=== PATIENT | female | born 1975 | race Caucasian/White ===

== ENCOUNTER 2019-06-11 11:40 | Emergency (ER) | payer MEDICAID, SELFPAY ==
[2019-06-11 11:41] VITALS: BP 152/91; PULSE 92; RESP 16; TEMP 36.4; O2SAT 100; BMI 30.9
--- NOTE | 2019-06-11 11:52 | RAD_ITS ---
STUDY: X-RAY - LEFT FOOT CLINICAL: Female, 43 years old. Pain and swelling following injury. TECHNIQUE: 3 view(s) of the foot. COMPARISON: None. FINDINGS: There is a plantar calcaneal spur. Normal visualized subtalar, talonavicular, calcaneocuboid, tarsal and tarsometatarsal articulations. Normal metatarsi. Normal metatarsophalangeal joint of the great toe. Normal tibial and fibular sesamoid bones. Normal interphalangeal joint of the great toe. Normal phalanges of the great toe. Normal second through fifth metatarsophalangeal joints. Normal interphalangeal joints and phalanges of the lesser toes. The soft tissue structures are unremarkable. RAD/Foot min 3 Views IMPRESSION: Lateral spur. Electronically Signed: Vinicio Sharpe, at 12:43 EDT , Service support ,
--- NOTE | 2019-06-11 11:52 | RAD_ITS ---
STUDY: X-RAY - LEFT ANKLE REASON FOR EXAM: Female, 43 years old. Pain and swelling following injury. TECHNIQUE: 3 view(s) of the ankle. COMPARISON: None. FINDINGS: Normal visualized distal tibia and fibula. Normal medial and lateral malleoli. Normal tibiotalar articulation and ankle mortise. Plantar spur. The visualized subtalar, talonavicular, calcaneocuboid and tarsal articulations are normal. Soft tissue swelling overlying the lateral malleolus. RAD/Ankle min 3 Views IMPRESSION: Soft tissue swelling. Plantar spur. Electronically Signed: Vinicio Sharpe, at 12:42 EDT , Service support ,
--- NOTE | 2019-06-11 11:57 | ED.DCSUM_ITS ---
History of Present Illness Chief Complaint: Lower Extremity Injury Detail of Chief Complaint: Left ankle injury Informant: Patient Onset: Days Narrative: Patient presents with left ankle injury. She states she is actually rolled her left ankle 3 times in the last 2-1/2 weeks. Yesterday's injury seem to be the worst and cause the most swelling and pain. Past Medical History - Allergies and Home Meds Allergies/Adverse Reactions: Allergies No Known Allergies Allergy (Verified 06/11/19 11:41) Primary Care Physician: [facility] Doctor,Out of [NON-STAFF] - Prior records reviewed: Yes Past Medical History: - - Reviewed Lives: With Family Smoking Status: Never smoker Review of Systems General: Denies: Chills, Fever Eyes: Denies: Visual changes - bilaterally ENT: Denies: Bilateral ear pain Cardiovascular: Denies: Chest pain Respiratory: Denies: Dyspnea, Cough Gastrointestinal: Denies: Abdominal pain, Nausea, Vomiting, Diarrhea Genitourinary: Denies: Dysuria Musculoskeletal: Reports: Extremity Pain Skin: Denies: Rash, Wounds Hematologic: Denies: Easy bruising Physical Exam Vital Signs/Narrative: Vital Signs Temp Pulse Resp BP Pulse Ox 06/11/19 11:41 97.6 F L 92 16 152/91 H 100 Inital Vital Signs reviewed: Yes General: Well nourished, Well developed Head: Normocephalic ENT: Moist mucous membranes Neck: Supple Cardiovascular: Regular rate, Regular rhythm Respiratory: No distress, CTA bilaterally Abdomen: Soft, Nontender Extremities: - - Edema, tenderness to palpation, early ecchymosis around the lateral malleolus of the left ankle. Mild pain noted to the proximal dorsal foot. No tenderness at the proximal fifth metatarsal. No tenderness at the proximal fibula. Strong pulses are noted with good range of motion. Neurological: Alert, Oriented x3 Psychological: Normal affect Diagnostic/Tx/Re-eval Impressions Ankle X-Ray 06/11/19 11:52 IMPRESSION: Soft tissue swelling. Plantar spur. Electronically Signed: Vinicio Sharpe, at 12:42 EDT , Service support , Foot X-Ray 06/11/19 11:52 IMPRESSION: Lateral spur. Electronically Signed: Vinicio Sharpe, at 12:43 EDT , Service support , 06/11/19 11:52 Ankle min 3 Views [RAD] Stat Foot min 3 Views [RAD] Stat - Medical Decision Making Patient was given naproxen and ice pack. X-ray results are discussed with her. She will be given an air stirrup splint and crutches, she may weight-bear as tolerated. She will begin a prescription for naproxen. If not improving she will follow-up with her orthopedic doctor in [place]. ED Disposition - Plan for ED Patient: Disposition: Home or Assisted Living Diagnosis: Ankle sprain Instructions: Sprain, Ankle, with X-Ray Prescriptions: Naproxen [Naprosyn] 500 mg PO BID PRN PRN #20 tablet PRN Reason: Pain Score 1-10/10 Referrals: [facility] Doctor,Out of [NON-STAFF] - Additional Instructions: Follow-up with your orthopedic doctor if not improved in next 5-7 days.
[2019-06-11] MEDS: Naproxen 500 MG Tablet PO (12:04)
== END 2019-06-11 13:27 | disposition home or self-care (01) ==
PROVIDERS: Emergency Provider Emergency Medicine
DX: S93.402A Sprain of unspecified ligament of left ankle, initial encounter (principal); X50.1XXA Overexertion from prolonged static or awkward postures, initial encounter; Y93.9 Activity, unspecified; Y92.89 Other specified places as the place of occurrence of the external cause; Y99.9 Unspecified external cause status
CPT/HCPCS: 73610; 73630; 99284

== ENCOUNTER 2019-07-16 17:00 | Emergency (ER) | payer MEDICAID, SELFPAY ==
[2019-07-16 17:01] VITALS: BP 129/79; PULSE 97; RESP 15; TEMP 36.9; O2SAT 99; BMI 28.9
--- NOTE | 2019-07-16 17:36 | EKG12_ITS ---
Test Reason : CP Blood Pressure : / mmHG Vent. Rate : 084 BPM Atrial Rate : 084 BPM P-R Int : 146 ms QRS Dur : 078 ms QT Int : 370 ms P-R-T Axes : 045 030 041 degrees QTc Int : 437 ms Normal sinus rhythm Normal ECG Confirmed by MARY SARAVIA, BESSY ([id number]), rewrite editor DWIGHT GONZALES ([id number]) on 07/18/2019 10:08:19 AM Referred By: MARGARITA/JAZMIN Confirmed By:MARILYN HERNANDEZ MD
--- NOTE | 2019-07-16 17:50 | ED.VISSUMM ---
- ER Visit Summary Date of Service: 07/16/19 Chief Complaint: Dizziness History of Present Illness: The patient is a 44 F who presents with dizziness and multiple other symptoms. The patient was in a stressful situation and dealing with a family member. She was not injured. She reports shortness of breath similar to her prior asthma symptoms. She reports nausea and vomiting similar to her prior anxiety symptoms. She also reports a history of low platelets. Her symptoms have gradually improved since the incident earlier today. Physical Examination: Afebrile and vital signs unremarkable. Alert and oriented. Anxious but otherwise unremarkable. Head and neck atraumatic. Heart regular. Lungs clear. Abdomen soft. No focal or lateralizing neurologic abnormalities grossly. Skin appears normal. Test Results: EKG showed sinus rhythm at a rate of 84 with no signs of ischemia or infarction pattern. CBC pending. Emergency Department Course and Treatment: Patient presents with panic and likely a stress reaction. Her lungs are clear. I do not suspect an asthma exacerbation or other pulmonary pathology. EKG is normal. Nothing to suggest cardiac pathology. Patient has no focal neurologic symptoms. 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 Will check a CBC. She was treated with Ativan while awaiting results. Will reassess. CBC unremarkable. Hemoglobin 11.7. Patient symptoms have resolved on reevaluation. She will be discharged home. Treatment Plan: As above Disposition: Discharge Impression: 1. Anxiety This note was generated with [employer] dictation software. It may contain incorrect words, spelling, and punctuation that were not noted in review of the chart prior to signing ED Disposition - Plan for ED Patient: Referrals: Care Physician,No Primary [Primary Care Provider] -
[2019-07-16] MEDS: LORazepam 1 MG Tablet PO (17:58)
[2019-07-16 18:22] LABS: Absolute Lymphocyte Count 2.39 X10^3/uL (0.83-4.51); Absolute Neutrophil Count 7.8 X10^3/uL (2.0-7.7); Basophil# 0.06 X10^3/uL; Basophil% 0.5 % (0-1); Eosinophil# 0.15 X10^3/uL; Eosinophils% 1.3 % (0-5); Hematocrit 37.5 % (37-47); Hemoglobin 11.7 g/dL (12.0-15.0); Lymphocyte # 2.39 X10^3/ul (4.0); Lymphocyte % 21.2 % (19-41); Mean Corp Hgb Conc 31.2 g/dL (32-36); Mean Corpuscular Hgb 24.8 pg (27.0-32.0); Mean Corpuscular Volume 79.4 fL (81-99); Monocyte# 0.87 X10^3/uL; Monocyte% 7.7 % (0-10); NRBC Flagged by Analyzer 0 % (0-5); Neutrophil # 7.77 X10^3/uL (2.7-7.7); Neutrophil % 68.9 % (47-70); Platelet Count 402 K/mm3 (150-450); RBC Distribution Width SD 43.5 fl (35.1-43.9); Red Blood Count 4.72 M/mm3 (4.2-5.4); White Blood Count 11.3 K/mm3 (4.4-11.0)
--- NOTE | 2019-07-16 18:55 | ED.DEP ---
ED Disposition - Plan for ED Patient: Instructions: Anxiety Reaction Referrals: Angelique Corley [NON-STAFF] -
== END 2019-07-16 19:13 | disposition home or self-care (01) ==
LOC: ED 18:23
PROVIDERS: Emergency Provider Emergency Medicine
DX: F41.9 Anxiety disorder, unspecified (principal); I10 Essential (primary) hypertension; J45.909 Unspecified asthma, uncomplicated
CPT/HCPCS: 36415; 85025; 93005; 99283

== ENCOUNTER 2023-09-15 12:13 | Emergency (ER) | payer MEDICAID, SELFPAY ==
[2023-09-15 12:14] VITALS: BP 158/124; PULSE 105; RESP 22; TEMP 36.2; O2SAT 99; BMI 30.2
--- OUTSIDE RECORDS SUMMARY | 2023-09-15 17:45 | XMS RPT_ITS | CCD ---
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 planning. To continue megace. [facility] 01-07-2023 Miscellaneous Notes Called to discuss plan with patient after urogyn referral. Planning for UDS in February,f/u visit with Dr. Padron in April. Bleeding is currently stable on megace. Discussed if she wants to proceed with TLH now, can offer TLH, BS, USLS, Cysto, now, but would not be able to perform possible sling or posterior repair for her symptoms of incontinence and constipation. Patient is ok with waiting until April for surgery scheduling for this reason. Please schedule patient for follow up hysterectomy consent after 04/29 for further surgical planning. To continue megace. documented in this encounter [facility] 01-07-2023 History of Present illness Narrative Images from the original note were not included. [facility] [address] [facility] [address] Dept: [phone] Dept PHYSICAL THERAPY TREATMENT Patient Name: Carey Tejeda : 1975 Date of Service: 01/07/2023 Referring Provider: Bg Horne PA-C Diagnosis: Acute left-sided back pain with sciatica Reason for referral/Mechanism of injury: Patient reports insidious onset of L LB/ L hip pain about 1 year ago, driving to [place]. Patient noticed increasing pain after 2h of driving and has been getting worse since with increasing difficulties sitting for long time, driving to [facility]. Precautions/Red Flags: None Patient Preferences: Carey Subjective Patient reports doing better, the pain does not go down to the back of L thigh anymore, mostly in the LB, midline and slightly in the L buttock. Patient reports feeling about 75% better at this time, still trouble sitting/ driving for long period of time and feels it after ~ 1h. Patient reports that the extension in standing and cobra seem to help a lot and she is getting a little stronger with the bridges too. Has to stop therapy at this time since she won't have health insurance starting January 09 but is hoping to have it back in February. Compliance with HEP: Yes Objective Patient demonstrates great improvement in pelvic/ lumbar and hip rotation control in prone, improved lumbar extension also noted and decreased pain overall. Treatment Therapeutic Activity Therapeutic Activity 1: Reviewed Sx, progression, warm up Bike x 5 min level 3 - no pain. Therapeutic Activity 2: reviewed quadruped pelvic/ hip opneing exs. Therapeutic Activity 3: Reviewed supine core activation + small march Therapeutic Activity 4: Cobra in prone and hands forward to reduce stress on lumbar spine and promote relaxation and blood flow. Therapeutic Activity 5: Supine bug progression Therapeutic Activity 6: Sitting october Therapeutic Activity 7: Sitting Knees-in then knees-ou with GTB for hip/ pelvic stab challenges and improve sitting posture and tolerance. Therapeutic Activity 8: Discussed using a rolled towel in sitting instead of lumbar pillow for better adjustment and segmental mob/ support Soft Tissue Mobilization Location: STM/ DTM lumbosacral region to parapsinals, upper glut Body Position: Prone Myofasical Release Location: Sacral release and MF mob in lumbosacral region Joint Mobilization Location: sacrum and SI decompression, sacrum and coccyx release and rot correction, gentle PA glides grade 2-3 of fenoral head Bilat. Body Position: Prone Muscle Energy Technique Location: Prone happy campers and hip rocks for active release Assessment Skilled physical therapy interventions utilized to improve patient s impairments and work towards established goals. Patient response to treatment: Good response, relief following session, able to progress well with core stab and sitting exs. Less shaky during exs and improved core activation/ stabilization and endurance noted. Patient will benefit from continued physical therapy to progress with core and hip strengthening to restore full function and minimize pain. Due to insurance coverage interruption next month, therapy will be on hold until patient can obtain new coverage, probably not until February 08 but will call us to schedule RUBEN. The rationale for today s treatment was explained to the patient. Verbal cues were provided for correct form with all exercises. Advised patient to continue with Home Exercise Program (HEP). Goals General/Ortho Patient will be independent with HEP. (Progressing) Start: 12/16/22 Expected End: 02/15/23 Patient will report decreased pain at 4/10 max in Lumbar and L hip region to be able to sit and sleep comfortably. (Progressing) Start: 12/16/22 Expected End: 02/15/23 Patient will increase ROM of lumbar spine to 100% pain free to be able to move better and reach down with less pain (Progressing) Start: 12/16/22 Expected End: 02/15/23 Patient will increase strength in core to 3+/5 and LE to 5/5 to be able to maintain proper posture and body mechanics throughout ADL's. (Progressing) Start: 12/16/22 Expected End: 02/15/23 Functional Outcome Measure: Patient will improve Owestry from 38 to 20 % (Not Addressed) Start: 12/16/22 Expected End: 02/15/23 Patient will be able to tolerate 2h of sitting to be able to travel for work and personally with less discomfort and limitations. (Progressing) Start: 12/16/22 Expected End: 02/15/23 Plan Plan for next session: Reassess after possibly 1 month of hold due to insurance coverage interruption. Continue to work on pelvic symmetry, posture and core + hip stabilization. Time Entry Total Treatment Time Start Time: 843 Stop Time: 913 Time Calculation (min): 30 min PT Therapeutic Procedures Time Entry Therapeutic Activity Time Entry: 14 Manual Therapy Time Entry: 15 Kaylee Schmidt PT documented in this encounter [facility] 12-23-2022 History of Present illness Narrative Images from the original note were not included. [facility] [address] [facility] [address] Dept: [phone] Dept PHYSICAL THERAPY TREATMENT Patient Name: Carey Tejeda : 1975 Date of Service: 12/23/2022 Referring Provider: Bg Horne PA-C Diagnosis: Acute left-sided back pain with sciatica Reason for referral/Mechanism of injury: Patient reports insidious onset of L LB/ L hip pain about 1 year ago, driving to [place]. Patient noticed increasing pain after 2h of driving and has been getting worse since with increasing difficulties sitting for long time, driving to [facility]. Precautions/Red Flags: None Patient Preferences: Carey Subjective Patient reports that she felt pretty good after last session, some pain in the L buttock but not traveling down the leg, even with long driving (did a lot this weekend). Compliance with HEP: Yes Objective Objective measurements not taken today. Treatment Therapeutic Activity # of Activities: 8 Therapeutic Activity 2: Reviewed supine LTR and progresse with segmental stabilization in rotation, cueing at the lumbar and pelvic area. Therapeutic Activity 3: Piriformis stretch with rolled towel in groin region to reduce pinching Therapeutic Activity 4: Prone Cobra Activity 5 Comment: Quadruped cat/ cow Therapeutic Activity 7: Quadruped decompression, breathing then back rock and tail waggin with tactile cueing Therapeutic Activity 8: Child pose with DDbreahting for lumbar decompression, hip/ pelvic opening Soft Tissue Mobilization Location: STM/ DTM lumbosacral region to parapsinals, upper glut Body Position: Prone Joint Mobilization Location: sacrum and SI decompression, sacrum and coccyx release and rot correction. Also worked on grade 2-3 PA glides, lumbar region then added cobra + overpressure. Body Position: Prone Assessment Skilled physical therapy interventions utilized to improve patient s impairments and work towards established goals. Patient response to treatment: relief following session, patient seems to progress with therapy. Patient will benefit from continued physical therapy to regain lumbar mobility and pelvic/ core and hip strength and stabilization to reduce pain and restore function. The rationale for today s treatment was explained to the patient. Verbal cues were provided for correct form with all exercises. Advised patient to continue with Home Exercise Program (HEP). Goals General/Ortho Patient will be independent with HEP. (Progressing) Start: 12/16/22 Expected End: 02/15/23 Patient will report decreased pain at 4/10 max in Lumbar and L hip region to be able to sit and sleep comfortably. (Progressing) Start: 12/16/22 Expected End: 02/15/23 Patient will increase ROM of lumbar spine to 100% pain free to be able to move better and reach down with less pain (Progressing) Start: 12/16/22 Expected End: 02/15/23 Patient will increase strength in core to 3+/5 and LE to 5/5 to be able to maintain proper posture and body mechanics throughout ADL's. (Progressing) Start: 12/16/22 Expected End: 02/15/23 Gait: Patient will demonstrate no gait deviations even getting up from a chair. (Progressing) Start: 12/16/22 Expected End: 02/15/23 Functional Outcome Measure: Patient will improve Owestry from 38 to 20 % (Not Addressed) Start: 12/16/22 Expected End: 02/15/23 Patient will be able to tolerate 2h of sitting to be able to travel for work and personally with less discomfort and limitations. (Progressing) Start: 12/16/22 Expected End: 02/15/23 Plan Plan for next session: Assess response to new mobility exs, continue to work on lumbar ext and progress with core strengthening exs. Time Entry Total Treatment Time Start Time: 942 Stop Time: 1013 Time Calculation (min): 31 min PT Therapeutic Procedures Time Entry Therapeutic Activity Time Entry: 17 Manual Therapy Time Entry: 12 Kaylee Schmidt PT documented in this encounter [facility] 12-19-2022 History of Present illness Narrative Images from the original note were not included. [facility] [address] [facility] [address] Dept: [phone] Dept PHYSICAL THERAPY TREATMENT Patient Name: Carey Tejeda : 1975 Date of Service: 12/19/2022 Referring Provider: Bg Horne PA-C Diagnosis: Acute left-sided back pain with sciatica Reason for referral/Mechanism of injury: Patient reports insidious onset of L LB/ L hip pain about 1 year ago, driving to [place]. Patient noticed increasing pain after 2h of driving and has been getting worse since with increasing difficulties sitting for long time, driving to [facility]. Precautions/Red Flags: None Patient Preferences: Carey Patino reports a little less pain since last visit and since is not pushing the exs too far. Patient reports minimal pain driving here this morning which is surprising. Compliance with HEP: Yes Objective Objective measurements not taken today. Treatment Therapeutic Activity Therapeutic Activity 1: Reviewed Sx, HEP, posture and sleeping position to reduce tensions and promote healing Therapeutic Activity 2: Reviewed supine LTR, as tolerated only Therapeutic Activity 3: PPT and progressed into segmental bridging. Therapeutic Activity 4: core + knees-in, progress with bridges as able Activity 5 Comment: Clams with GTB supine, progress with bridges if able Soft Tissue Mobilization Location: STM/ DTM lumbosacral region to parapsinals, upper glut Body Position: Prone Myofasical Release Location: Sacral release and MF mob in lumbosacral region Joint Mobilization Location: sacrum and SI decompression, sacrum and coccyx release and rot correction Body Position: Prone Muscle Energy Technique Location: Psoas and Iliacus relase in supine, prone happy campers and hip rocks for active release Assessment Skilled physical therapy interventions utilized to improve patient s impairments and work towards established goals. Patient response to treatment: Good response, some soreness following MT but felt good at the same time. Improved control with segmental bridges but very shaky and weak with hip co-contraction. Patient will benefit from continued physical therapy to regain lumbar/ pelvic mobility and cor/ pelvic stabilization to restore full function without pain. The rationale for today s treatment was explained to the patient. Verbal cues were provided for correct form with all exercises. Advised patient to continue with Home Exercise Program (HEP). Goals General/Ortho Patient will be independent with HEP. (Progressing) Start: 12/16/22 Expected End: 02/15/23 Patient will report decreased pain at 4/10 max in Lumbar and L hip region to be able to sit and sleep comfortably. (Progressing) Start: 12/16/22 Expected End: 02/15/23 Patient will increase ROM of lumbar spine to 100% pain free to be able to move better and reach down with less pain (Progressing) Start: 12/16/22 Expected End: 02/15/23 Patient will increase strength in core to 3+/5 and LE to 5/5 to be able to maintain proper posture and body mechanics throughout ADL's. (Progressing) Start: 12/16/22 Expected End: 02/15/23 Gait: Patient will demonstrate no gait deviations even getting up from a chair. (Progressing) Start: 12/16/22 Expected End: 02/15/23 Functional Outcome Measure: Patient will improve Owestry from 38 to 20 % (Progressing) Start: 12/16/22 Expected End: 02/15/23 Patient will be able to tolerate 2h of sitting to be able to travel for work and personally with less discomfort and limitations. (Progressing) Start: 12/16/22 Expected End: 02/15/23 Plan Plan for next session: Assess benefits of MT today and progress with core stab exs. Time Entry Total Treatment Time Start Time: 1010 Stop Time: 1043 Time Calculation (min): 33 min PT Therapeutic Procedures Time Entry Therapeutic Activity Time Entry: 15 Manual Therapy Time Entry: 17 Kaylee Schmidt PT documented in this encounter [facility] 12-16-2022 History of Present illness Narrative Images from the original note were not included. [facility] [address] [facility] [address] Dept: [phone] Dept PHYSICAL THERAPY EVALUATION Patient Name: Carey Tejeda : 1975 Date of Service: 12/16/2022 Referring Provider: Bg Horne PA-C Diagnosis: Acute left-sided back pain with sciatica General Information Reason for referral/Mechanism of injury: Patient reports insidious onset of L LB/ L hip pain about 1 year ago, driving to [place]. Patient noticed increasing pain after 2h of driving and has been getting worse since with increasing difficulties sitting for long time, driving to [facility]. 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 on sites. Home Setup: house, 2 levels, room on first floor. PMHX: Carey has a past medical history of Acid reflux, Asthma, DUB (dysfunctional uterine bleeding), Fall, Fibrocystic breast, Fibroid uterus, Headache, Hemolysis, elevated liver enzymes, and low platelet (HELLP) syndrome during , antepartum, Hiatal hernia, High cholesterol, History of blood transfusion, Infestation by bed bug, Iron deficiency anemia, Neoplasm of uncertain behavior, Ovarian cyst, Right ankle pain, STD (female), Uterine enlargement, and Vitamin D deficiency. She has no past medical history of blood clots. PSHX: Carey has a past surgical history that includes Other surgical history; Colonoscopy (06/11/2011,2021); Hysteroscopy (N/A, 02/06/2022); [place] tooth extraction; Mole removal; Hand surgery; section; and Cystoscopy (12/13/2022). Have you experienced any anxiety, depression, thoughts of self-harm or suicidal thoughts?: Yes, some anxiety and depression, is considering seeing a therapist again but denies thoughts of self-harm or suicidal thoughts. Physician follow-up appointment?: Yes Subjective Chief Complaint: Patient reports L hip/ buttock pain, occasionally radiating down the back of L thigh. Occasional pain on the R side but rare. Chronic Low back pain noted as well.. Pain: Current: 4/10, 2-3/10 LBP Best: 3-410 Worst: 1010 Symptoms Aggravated by: Sitting> 1h, sometimes less Symptoms Relieved by: Ice relieves the LBP, getting up and moving helps the buttock pain Prior Level of Function: Could sit, no pain Current Level of Function: Difficulties sitting 1h on good days, less than that on bad days, difficulties walking when hurts, difficulties sleeping (wakes up 2-3x/ night) Patient s Stated Goal: No pain Outcome Measures Oswestry Low Back Disability: 19 points = 38% Objective BACK Observation: Patient sitting on edge of the chair, leaning on the L side Gait: Limping the first 2-3 steps when got up from chair, more even stance after that but decreased trunk rotation and R arm swing. Trunk AROM Percentage Flexion (flex) 80% - pain Extension (ext) 80% Right side bending (SBR) 80% Left side bending (SBL) 80% Right rotation (rotR) 80% Left rotation (rotL) 80% Myotomes/LE Strength Right Left Hip Flexion (L2-L3) 5/5 5/5 Hip Abduction 5-/5 5-/5 Hip Extension 4+/5 4/5 Knee Extension (L3-L4) 5-/5 4+/5 Knee Flexion (S2) 5/5 4+/5 Ankle DF (L5) 5/5 5/5 Ankle PF (S1) 5/5 5/5 core 3/5 3/5 Joint Mobility: NT Palpation: Tenderness along post ITB border, some tenderness in the lumbar paraspinals region Flexibility: Decreased HS flexibility Assessment Carey Tejeda is a 47 y.o. patient with chief complaint of Low back pain and L hip/ L proximal thigh pain, lateral region, who presents with signs and symptoms consistent with chronic low back, L radiculopathy and possible hip pain/ ITB syndrome . The patient would benefit from skilled physical therapy to address decreased strength, decreased range of motion, pain, impaired gait, and impaired functional activities. Evaluation complexity is moderate secondary to: patient has 1-2 personal factors and/or comorbidities that will affect plan of care, therapy will be addressing 3 or more elements, and clinical presentation is evolving. Body Systems Affected: musculoskeletal Rehab Potential: Good Learning Preferences: demonstration, explanation, performance, and printed materials Barriers to Rehab: none Goals General/Ortho Patient will be independent with HEP. (Initiated) Start: 12/16/22 Expected End: 02/15/23 Patient will report decreased pain at 4/10 max in Lumbar and L hip region to be able to sit and sleep comfortably. (Initiated) Start: 12/16/22 Expected End: 02/15/23 Patient will increase ROM of lumbar spine to 100% pain free to be able to move better and reach down with less pain (Initiated) Start: 12/16/22 Expected End: 02/15/23 Patient will increase strength in core to 3+/5 and LE to 5/5 to be able to maintain proper posture and body mechanics throughout ADL's. (Initiated) Start: 12/16/22 Expected End: 02/15/23 Gait: Patient will demonstrate no gait deviations even getting up from a chair. (Initiated) Start: 12/16/22 Expected End: 02/15/23 Functional Outcome Measure: Patient will improve Owestry from 38 to 20 % (Initiated) Start: 12/16/22 Expected End: 02/15/23 Patient will be able to tolerate 2h of sitting to be able to travel for work and personally with less discomfort and limitations. (Initiated) Start: 12/16/22 Expected End: 02/15/23 Plan Frequency and Duration: 2/wk for 8 weeks Therapeutic Contents: Client Education, Home Exercise Program, Therapeutic exercises, Therapeutic activities, Neuro-muscular reeducation, Manual therapy and Modalities as needed. Plan for next session: Assess benefits of initial HEP, proper posture and sleeping adjustment. Progress with MT and exs for lumbar and hip mobility. Flexibility and progress with core stab. Risks and benefits were discussed with the patient and/or family, and the patient and/or family participated with the plan of care and agrees. Treatment Therapeutic Activity Therapeutic Activity 1: Educated patient on eval findings, Sx Mx using heat/ ice and proper sleeping or sitting posture, therapy goals and POC. Therapeutic Activity 2: Edcuated patient on proper HEP: Access code [email or web address] Therapeutic Activity 3: LTR with guidance for gentle stretch and mob, not pushing through pain. Activity 3 Comment: 10x 5 ea Therapeutic Activity 4: HS/ Sciatic nerve str. supine, active Activity 4 Comment: 10 x 2-3 sec ea Activity 5 Comment: Figure 4 sretch with support for max relaxation Therapeutic Activity 6: 30 ea Therapeutic Activity 7: Pelvic tilt with active core activation supine Activity 7 Comment: 5x Time Entry Total Treatment Time Start Time: 821 Stop Time: 919 Time Calculation (min): 58 min PT Evaluation Time Entry PT Evaluation (Moderate) Time Entry: 30 PT Therapeutic Procedures Time Entry Therapeutic Activity Time Entry: 24 Kaylee Schmidt PT documented in this encounter [facility] 12-13-2022 Emergency department Note Discharge instructions reviewed with patient. Medications, treatments, and follow up appointments discussed. Medications completed. VS stable. All questions answered. Patient verbalized understanding. Patricia Muniz RN 12/13/221932 [facility] 12-13-2022 Emergency department Note Discharge instructions reviewed with patient. Medications, treatments, and follow up appointments discussed. Medications completed. VS stable. All questions answered. Patient verbalized understanding. Patricia Muniz RN 12/13/221932 Pt had Whaley catheter placed today in physician office. Pt has leg bag strapped to upper thigh. Pt complains of feeling full and stating that Whaley drained for approx 1 hour after it was done. 220mL noted in catheter bag, dark che in color. Catheter bag repositioned to lower part of leg and small amount of drainage noted. Whaley irrigated with 80cc of sterile water. No clots or other debris noted. Bladder scan completed, 48mL noted. Pt tolerated well. Provider notified. Patricia Muniz RN 12/13/22 [id number] EMERGENCY DEPARTMENT ENCOUNTER Pt Name: Carey Tejeda Birthdate 1975 Date of evaluation: 12/13/2022 ED Provider: Lolita Peterson PA-C CHIEF COMPLAINT Chief Complaint Patient presents with Female Dysuria Pt states she had a urethral catheter placed today that has not been draining. Pt states she had one full bag and then catheter stopped working. Pt reports pain and pressure in her bladder. HISTORY OF PRESENT ILLNESS (Location/Symptom, Timing/Onset, Context/Setting, Quality, Duration, Modifying Factors, Severity) Note limiting factors. I wore appropriate PPE for the entirety of this encounter. HPI Carey Tejeda is a 47 y.o. female who presents to the emergency department for evaluation of her Whaley catheter not draining properly. Patient states she had a cystoscopy performed at for possible bladder cancer versus bladder information, was sent home with a Whaley secondary to having this procedure done, she states that she had 1 full bag empty and it was totally normal, but then by the time she got home the catheter is not working properly anymore. She states that she feels like she has a full bladder, and her belly is sore but she is not having much drainage out of the cath. Has follow-up with the surgeon on Friday. States that she is keeping in the Whaley until Friday and they are taking and out doing a voiding trial. Patient was sent home with medications to take to help with any symptoms as well as an antibiotic. Nursing Notes were reviewed. Limitations to history: None Outside historians: None REVIEW OF SYSTEMS Review of Systems Constitutional: Negative. HENT: Negative. Eyes: Negative. Respiratory: Negative. Cardiovascular: Negative. Gastrointestinal: Negative. Endocrine: Negative. Genitourinary: Positive for difficulty urinating. Bladder feels full and feels like she cannot go to the bathroom. Musculoskeletal: Negative. Skin: Negative. Allergic/Immunologic: Negative. Neurological: Negative. Hematological: Negative. Psychiatric/Behavioral: Negative. 14 systems reviewed, positives and pertinent negatives as per HPI. All other systems were reviewed and are negative. PAST MEDICAL HISTORY Past Medical History: Diagnosis Date Acid reflux Asthma DUB (dysfunctional uterine bleeding) Fall 01/2022 about 2 weeks ago Fibrocystic breast Fibroid uterus 02/2012 unspecified Headache Migraines Hemolysis, elevated liver enzymes, and low platelet (HELLP) syndrome during , antepartum Hiatal hernia High cholesterol 2016 History of blood transfusion Infestation by bed bug Iron deficiency anemia 03/2011 transfusion of 2 units Neoplasm of uncertain behavior Ovarian cyst Left Right ankle pain 01/2022 s/p recent fall STD (female) 1999 Uterine enlargement Vitamin D deficiency SURGICAL HISTORY Past Surgical History: Procedure Laterality Date SECTION (HISTORICAL) G2 Classical, G3 uterine rupture COLONOSCOPY 06/11/2011,2021 Negative HAND SURGERY R thumb laceration repair (1987) , L index finger orthopedic repair (2002) HYSTEROSCOPY N/A 02/06/2022 dilation and curettage, IUD placement MOLE REMOVAL on back OTHER SURGICAL HISTORY blood transfusion 2010 WISDOM TOOTH EXTRACTION CURRENT MEDICATIONS Previous Medications ALBUTEROL 108 (90 BASE) MCG/ACT INHALER 2 puffs BUDESONIDE-FORMOTEROL (SYMBICORT) 80-4.5 MCG/ACT INHALER Inhale 2 puffs in the morning and 2 puffs before bedtime. MEGESTROL (MEGACE) 40 MG TABLET Take 1 tablet (40 mg total) by mouth daily. OMEPRAZOLE (PRILOSEC) [address] CAPSULE Take 40 mg by mouth daily. SUMATRIPTAN (IMITREX) 25 MG TABLET every 12 hours. ALLERGIES Hydrocodone-acetaminophen, Montelukast, Nickel, Other, and Pedi-pre tape spray [wound dressing adhesive] FAMILY HISTORY Family History Problem Relation Name Age of Onset Diabetes Paternal Grandmother Heart disease Maternal Grandfather Other (03890) Father hypothyroidism Cancer Maternal Grandmother stomach cancer Other ([id number]) Mother Thyroid issues Heart disease Mother's Brother Mental illness Son High Blood Pressure Mother's Sister Diabetes Father SOCIAL HISTORY Social History Socioeconomic History Marital status: Tobacco Use Smoking status: Never Passive exposure: Never Smokeless tobacco: Never Substance and Sexual Activity Alcohol use: Not Currently Drug use: No Sexual activity: Not Currently Partners: Male Comment: Bonita IUD 02/06/22 SCREENINGS PHYSICAL EXAM ED Triage Vitals [12/13/22 1653] Temp Heart Rate Resp BP 36.6 C (97.9 F) (!) 117 20 (!) 135/95 SpO2 Temp Source Heart Rate Source Patient Position 97 % Temporal Monitor -- BP Location FiO2 (%) -- -- Physical Exam Constitutional: General: She is not in acute distress. Appearance: She is obese. She is not ill-appearing, toxic-appearing or diaphoretic. HENT: Head: Normocephalic and atraumatic. Eyes: Extraocular Movements: Extraocular movements intact. Pupils: Pupils are equal, round, and reactive to light. Cardiovascular: Rate and Rhythm: Normal rate and regular rhythm. Pulses: Normal pulses. Heart sounds: Normal heart sounds. Pulmonary: Effort: Pulmonary effort is normal. Breath sounds: Normal breath sounds. Abdominal: General: Abdomen is flat. Palpations: Abdomen is soft. Tenderness: There is abdominal tenderness in the suprapubic area. Comments: The abdomen is flat and soft, Patient is mildly tender in the suprapubic region and states her bladder feels full. Denies any other areas of tenderness. Genitourinary: Comments: Whaley catheter does have a small amount of urine in the bag at this time, does not appear grossly bloody. Musculoskeletal: General: Normal range of motion. Cervical back: Normal range of motion. Skin: General: Skin is warm. Capillary Refill: Capillary refill takes less than 2 seconds. Neurological: General: No focal deficit present. Mental Status: She is alert and oriented to person, place, and time. Psychiatric: Mood and Affect: Mood normal. Behavior: Behavior normal. DIAGNOSTIC RESULTS RADIOLOGY (Per Emergency Physician): Interpretation per the Radiologist below, if available at the time of this note: No orders to display LABS: Labs Reviewed - No data to display All other labs were within normal range or not returned as of this dictation. EMERGENCY DEPARTMENT COURSE and DIFFERENTIAL DIAGNOSIS/MDM: Vitals: Vitals: 12/13/22 1653 BP: (!) 135/95 Pulse: (!) 117 Resp: 20 Temp: 36.6 C (97.9 F) TempSrc: Temporal SpO2: 97% Medications - No data to display I independently evaluated the patient with supervising attending physician available as needed for collaboration. In brief, Carey Tejeda is a 47 y.o. female who presented to the emergency department for evaluation of whaley cath not draining after the cath was placed following cystoscopy at . Patient states Whaley is supposed to come out on Friday. Has antibiotics and pain medication to take at home but has not taken it because she felt like it was not draining well so came to the ED. Patient states that she does feel like her bladder is full at this time. Patient thought her bladder was going to explode because she was not having more drainage, but she had not had anything to eat or drink since procedure. >200 noted in the bag when patient arrived to the ED and she states it has been draining but not as much as it did right after it was inserted . Nursing notes and medical records reviewed, vital signs reviewed and within normal limits other than elevated blood pressure 135/95, patient's original heart rate was 117, patient states this is secondary to the fact that she was extremely anxious. Differential considerations included-need for Whaley catheter irrigation secondary to possible blood clot, mucus clogging the area, and appropriate placement, need for replacement of Whaley catheter, post surgical cramping and pain Initial medical management includes-none Other medications considered-Tylenol, ibuprofen Initial workup includes-no work-up was ordered at this time, going to irrigate the Whaley, if cannot irrigate and get a good urine drained then will go ahead and replace the Whaley altogether. Other workup considerations included-CT abdomen pelvis if whaley not draining still. Upon reassessment patient-patient tolerated irrigation appropriately. They did irrigate with 80 cc of sterile water, no significant clot or debris were noted. Patient had 48 mL on bladder scan after irrigation. Patient did have her catheter bag strapped to the episode, catheter bag was repositioned to the lower part of the leg and discussed leaving it there which then caused small amount of drainage to occur. She had 220 mL noted in the catheter bag which was emptied which had been draining since she last emptied her first bag. Patient states that she feels well, thinks that some of this pain/anxiety/discomfort may be secondary to the recent procedure she just had. Lab workup results-none Imaging results per radiology-none Chronic conditions contributing to patients presentation include-none Critical care-none I have low suspiscion for (effectively ruled ddx out via)-need for Whaley replacement at this time, or Whaley dysfunction. There was 220 mL noted in the catheter bag which was emptied its been draining, but is not draining as fast as patient thought it may have been needing to drain. She only had 48 mL noted in her bladder on bladder scan after Whaley irrigation. This is reasonable, not significant retention. Patient tolerated it well and she states she is feeling better. Do not think there needs to be whaley change due to whaley being moved to the lower leg and drainage occurring, >200mL in the bag on arrival which has been draining since bag was emptied, and no significant rentention seen on bladder scan. Social determinants to care: lack of insurance/PCP, homelessness, health literacy- none Consulted-none Diagnosis (mild, severe, acute, chronic, stable, unstable)- whaley cath problem Disposition-patient be discharged stable condition with close follow-up with her urologist. Discussed with the patient if for any reason the bag stops draining altogether, she feels like she is having more retention she should return to the ED for further evaluation/possible Whaley change. Secondary to the bag draining greater than 200 mL since she last changed her, irrigation tolerated, and her only having 48 mL in her bladder and total think it is reasonable for patient to be discharged, and should return if symptoms are not improving. Patient also states that she thinks that some of her symptoms to be secondary to the cystoscopy that she just had done as she is having some crampy sensations as well. States that she was she is anxious that this is not flowing correctly and that she may have a bladder rupture. Discussed with the patient close return to ED policies if symptoms are not improving and she states understanding. Patient states she is can to take her pain medication as well as her antibiotic when she gets home and is going to rest, and drink light fluids. Shared decision making- to not replace whaley at this time as it does appear to be draining and functioning appropriately. Prescriptions provided-none patient has her medications she is supposed to be taking from her urologist. Discussed ED return precautions, recommended consulting their primary doctor or returning to the ED if there are any new or worsening of symptoms, particularly- worsening retention symptoms, N/V, worsening suprapubic pain, no drainage for the whaley [id number] at or return to the ED if symptoms are not improving. PROCEDURES: Unless otherwise noted below, none Procedures FINAL IMPRESSION 1. Problem with Whaley catheter, initial encounter ([facility]) DISPOSITION Discharge 12/13/2022 06:43:59 PM PATIENT REFERRED TO: [facility] ED [address] [place] [id number] Go to If symptoms worsen DISCHARGE MEDICATIONS: New Prescriptions No medications on file (Comment: Please note this report has been produced using speech recognition software and may contain errors related to that system including errors in grammar, punctuation, and spelling, as well as words and phrases that may be inappropriate. If there are any questions or concerns please feel free to contact the dictating provider for clarification.) Lolita Peterson PA-C (electronically signed) Emergency Medicine Provider Lolita Peterson PA-C 12/13/22 [id number] documented in this encounter [facility] 12-13-2022 Hospital Discharge instructions Lolita Peterson PA-C - 12/13/2022 6:45 PM EDT You were seen today for possible retention, the Whaley was irrigated, you did have over 200 your Whaley bag/Whaley was irrigated as well. If you develop any worsening retention, or if you are not getting any output from the Whaley overnight or into tomorrow you should to return to the ED for further evaluation/call your surgeon. In the medical field, there is always a level of diagnostic uncertainty, even if this uncertainty is low. For this reason, it is important to immediately return to the emergency department if you have any new symptoms, worsening symptoms, change of symptoms, or if you have any other concerns. We would be happy to re-evaluate you. Otherwise, please take your medications as prescribed and follow-up as recommended. The following attachments cannot be sent through Care Everywhere.How to Care for Your Whaley Catheter (Thai)documented in this encounter [facility] 05-05-2023 Emergency department Note Pt had Whaley catheter placed today in physician office. Pt has leg bag strapped to upper thigh. Pt complains of feeling full and stating that Whaley drained for approx 1 hour after it was done. 220mL noted in catheter bag, dark che in color. Catheter bag repositioned to lower part of leg and small amount of drainage noted. Whaley irrigated with 80cc of sterile water. No clots or other debris noted. Bladder scan completed, 48mL noted. Pt tolerated well. Provider notified. Patricia Muniz RN 12/13/[address] [facility] 12-13-2022 Physician Emergency department Note EMERGENCY DEPARTMENT ENCOUNTER Pt Name: Carey Tejeda Birthdate 1975 Date of evaluation: 12/13/2022 ED Provider: Lolita Peterson PA-C CHIEF COMPLAINT Chief Complaint Patient presents with Female Dysuria Pt states she had a urethral catheter placed today that has not been draining. Pt states she had one full bag and then catheter stopped working. Pt reports pain and pressure in her bladder. HISTORY OF PRESENT ILLNESS (Location/Symptom, Timing/Onset, Context/Setting, Quality, Duration, Modifying Factors, Severity) Note limiting factors. I wore appropriate PPE for the entirety of this encounter. HPI Carey Tejeda is a 47 y.o. female who presents to the emergency department for evaluation of her Whaley catheter not draining properly. Patient states she had a cystoscopy performed at for possible bladder cancer versus bladder information, was sent home with a Whaley secondary to having this procedure done, she states that she had 1 full bag empty and it was totally normal, but then by the time she got home the catheter is not working properly anymore. She states that she feels like she has a full bladder, and her belly is sore but she is not having much drainage out of the cath. Has follow-up with the surgeon on Friday. States that she is keeping in the Whaley until Friday and they are taking and out doing a voiding trial. Patient was sent home with medications to take to help with any symptoms as well as an antibiotic. Nursing Notes were reviewed. Limitations to history: None Outside historians: None REVIEW OF SYSTEMS Review of Systems Constitutional: Negative. HENT: Negative. Eyes: Negative. Respiratory: Negative. Cardiovascular: Negative. Gastrointestinal: Negative. Endocrine: Negative. Genitourinary: Positive for difficulty urinating. Bladder feels full and feels like she cannot go to the bathroom. Musculoskeletal: Negative. Skin: Negative. Allergic/Immunologic: Negative. Neurological: Negative. Hematological: Negative. Psychiatric/Behavioral: Negative. 14 systems reviewed, positives and pertinent negatives as per HPI. All other systems were reviewed and are negative. PAST MEDICAL HISTORY Past Medical History: Diagnosis Date Acid reflux Asthma DUB (dysfunctional uterine bleeding) Fall 01/2022 about 2 weeks ago Fibrocystic breast Fibroid uterus 02/2012 unspecified Headache Migraines Hemolysis, elevated liver enzymes, and low platelet (HELLP) syndrome during , antepartum Hiatal hernia High cholesterol 2016 History of blood transfusion Infestation by bed bug Iron deficiency anemia 03/2011 transfusion of 2 units Neoplasm of uncertain behavior Ovarian cyst Left Right ankle pain 01/2022 s/p recent fall STD (female) 2000 Uterine enlargement Vitamin D deficiency SURGICAL HISTORY Past Surgical History: Procedure Laterality Date SECTION (HISTORICAL) G2 Classical, G3 uterine rupture COLONOSCOPY 06/11/2011,2021 Negative HAND SURGERY R thumb laceration repair (1987) , L index finger orthopedic repair (2002) HYSTEROSCOPY N/A 02/06/2022 dilation and curettage, IUD placement MOLE REMOVAL on back OTHER SURGICAL HISTORY blood transfusion 2010 WISDOM TOOTH EXTRACTION CURRENT MEDICATIONS Previous Medications ALBUTEROL 108 (90 BASE) MCG/ACT INHALER 2 puffs BUDESONIDE-FORMOTEROL (SYMBICORT) 80-4.5 MCG/ACT INHALER Inhale 2 puffs in the morning and 2 puffs before bedtime. MEGESTROL (MEGACE) 40 MG TABLET Take 1 tablet (40 mg total) by mouth daily. OMEPRAZOLE (PRILOSEC) [address] CAPSULE Take 40 mg by mouth daily. SUMATRIPTAN (IMITREX) 25 MG TABLET every 12 hours. ALLERGIES Hydrocodone-acetaminophen, Montelukast, Nickel, Other, and Pedi-pre tape spray [wound dressing adhesive] FAMILY HISTORY Family History Problem Relation Name Age of Onset Diabetes Paternal Grandmother Heart disease Maternal Grandfather Other (40405) Father hypothyroidism Cancer Maternal Grandmother stomach cancer Other (28234) Mother Thyroid issues Heart disease Mother's Brother Mental illness Son High Blood Pressure Mother's Sister Diabetes Father SOCIAL HISTORY Social History Socioeconomic History Marital status: Tobacco Use Smoking status: Never Passive exposure: Never Smokeless tobacco: Never Substance and Sexual Activity Alcohol use: Not Currently Drug use: No Sexual activity: Not Currently Partners: Male Comment: Bonita IUD 02/06/22 SCREENINGS PHYSICAL EXAM ED Triage Vitals [12/13/22 1653] Temp Heart Rate Resp BP 36.6 C (97.9 F) (!) 117 20 (!) 135/95 SpO2 Temp Source Heart Rate Source Patient Position 97 % Temporal Monitor -- BP Location FiO2 (%) -- -- Physical Exam Constitutional: General: She is not in acute distress. Appearance: She is obese. She is not ill-appearing, toxic-appearing or diaphoretic. HENT: Head: Normocephalic and atraumatic. Eyes: Extraocular Movements: Extraocular movements intact. Pupils: Pupils are equal, round, and reactive to light. Cardiovascular: Rate and Rhythm: Normal rate and regular rhythm. Pulses: Normal pulses. Heart sounds: Normal heart sounds. Pulmonary: Effort: Pulmonary effort is normal. Breath sounds: Normal breath sounds. Abdominal: General: Abdomen is flat. Palpations: Abdomen is soft. Tenderness: There is abdominal tenderness in the suprapubic area. Comments: The abdomen is flat and soft, Patient is mildly tender in the suprapubic region and states her bladder feels full. Denies any other areas of tenderness. Genitourinary: Comments: Whaley catheter does have a small amount of urine in the bag at this time, does not appear grossly bloody. Musculoskeletal: General: Normal range of motion. Cervical back: Normal range of motion. Skin: General: Skin is warm. Capillary Refill: Capillary refill takes less than 2 seconds. Neurological: General: No focal deficit present. Mental Status: She is alert and oriented to person, place, and time. Psychiatric: Mood and Affect: Mood normal. Behavior: Behavior normal. DIAGNOSTIC RESULTS RADIOLOGY (Per Emergency Physician): Interpretation per the Radiologist below, if available at the time of this note: No orders to display LABS: Labs Reviewed - No data to display All other labs were within normal range or not returned as of this dictation. EMERGENCY DEPARTMENT COURSE and DIFFERENTIAL DIAGNOSIS/MDM: Vitals: Vitals: 12/13/22 1653 BP: (!) 135/95 Pulse: (!) 117 Resp: 20 Temp: 36.6 C (97.9 F) TempSrc: Temporal SpO2: 97% Medications - No data to display I independently evaluated the patient with supervising attending physician available as needed for collaboration. In brief, Carey Tejeda is a 47 y.o. female who presented to the emergency department for evaluation of whaley cath not draining after the cath was placed following cystoscopy at . Patient states Whaley is supposed to come out on Friday. Has antibiotics and pain medication to take at home but has not taken it because she felt like it was not draining well so came to the ED. Patient states that she does feel like her bladder is full at this time. Patient thought her bladder was going to explode because she was not having more drainage, but she had not had anything to eat or drink since procedure. >200 noted in the bag when patient arrived to the ED and she states it has been draining but not as much as it did right after it was inserted . Nursing notes and medical records reviewed, vital signs reviewed and within normal limits other than elevated blood pressure 135/95, patient's original heart rate was 117, patient states this is secondary to the fact that she was extremely anxious. Differential considerations included-need for Whaley catheter irrigation secondary to possible blood clot, mucus clogging the area, and appropriate placement, need for replacement of Whaley catheter, post surgical cramping and pain Initial medical management includes-none Other medications considered-Tylenol, ibuprofen Initial workup includes-no work-up was ordered at this time, going to irrigate the Whaley, if cannot irrigate and get a good urine drained then will go ahead and replace the Whaley altogether. Other workup considerations included-CT abdomen pelvis if whaley not draining still. Upon reassessment patient-patient tolerated irrigation appropriately. They did irrigate with 80 cc of sterile water, no significant clot or debris were noted. Patient had 48 mL on bladder scan after irrigation. Patient did have her catheter bag strapped to the episode, catheter bag was repositioned to the lower part of the leg and discussed leaving it there which then caused small amount of drainage to occur. She had 220 mL noted in the catheter bag which was emptied which had been draining since she last emptied her first bag. Patient states that she feels well, thinks that some of this pain/anxiety/discomfort may be secondary to the recent procedure she just had. Lab workup results-none Imaging results per radiology-none Chronic conditions contributing to patients presentation include-none Critical care-none I have low suspiscion for (effectively ruled ddx out via)-need for Whaley replacement at this time, or Whaley dysfunction. There was 220 mL noted in the catheter bag which was emptied its been draining, but is not draining as fast as patient thought it may have been needing to drain. She only had 48 mL noted in her bladder on bladder scan after Whaley irrigation. This is reasonable, not significant retention. Patient tolerated it well and she states she is feeling better. Do not think there needs to be whaley change due to whaley being moved to the lower leg and drainage occurring, >200mL in the bag on arrival which has been draining since bag was emptied, and no significant rentention seen on bladder scan. Social determinants to care: lack of insurance/PCP, homelessness, health literacy- none Consulted-none Diagnosis (mild, severe, acute, chronic, stable, unstable)- whaley cath problem Disposition-patient be discharged stable condition with close follow-up with her urologist. Discussed with the patient if for any reason the bag stops draining altogether, she feels like she is having more retention she should return to the ED for further evaluation/possible Whaley change. Secondary to the bag draining greater than 200 mL since she last changed her, irrigation tolerated, and her only having 48 mL in her bladder and total think it is reasonable for patient to be discharged, and should return if symptoms are not improving. Patient also states that she thinks that some of her symptoms to be secondary to the cystoscopy that she just had done as she is having some crampy sensations as well. States that she was she is anxious that this is not flowing correctly and that she may have a bladder rupture. Discussed with the patient close return to ED policies if symptoms are not improving and she states understanding. Patient states she is can to take her pain medication as well as her antibiotic when she gets home and is going to rest, and drink light fluids. Shared decision making- to not replace whaley at this time as it does appear to be draining and functioning appropriately. Prescriptions provided-none patient has her medications she is supposed to be taking from her urologist. Discussed ED return precautions, recommended consulting their primary doctor or returning to the ED if there are any new or worsening of symptoms, particularly- worsening retention symptoms, N/V, worsening suprapubic pain, no drainage for the whaley [id number] urology at or return to the ED if symptoms are not improving. PROCEDURES: Unless otherwise noted below, none Procedures FINAL IMPRESSION 1. Problem with Whaley catheter, initial encounter (HCC) DISPOSITION Discharge 12/13/2022 06:43:59 PM PATIENT REFERRED TO: [facility] ED [address] [facility] [id number] Go to If symptoms worsen DISCHARGE MEDICATIONS: New Prescriptions No medications on file (Comment: Please note this report has been produced using speech recognition software and may contain errors related to that system including errors in grammar, punctuation, and spelling, as well as words and phrases that may be inappropriate. If there are any questions or concerns please feel free to contact the dictating provider for clarification.) Lolita Peterson PA-C (electronically signed) Emergency Medicine Provider Lolita Peterson PA-C 12/13/[id number] [employer] Phone: 12-13-2022 Note PROCEDURE DETAILS Preoperative Diagnosis: Bladder lesion Postoperative Diagnosis: Bladder lesion Surgeon: Dr. Colmenares Resident/Fellow/Other Internship: none Procedure: TURBT Estimated Blood Loss: 0 Findings: See Op note Specimens(s) Collected: yes, bladder lesion Operative Report: Preoperative diagnosis: Bladder mass Postop diagnosis: Same Procedure: Cystoscopy TURBT Physician: John Bajwa Anesthesia: Gen. Estimated blood loss: Minimal Indications and consent: The patient presents for treatment of a bladder mass seen on recent office cystoscopy. After the risks, benefits, alternatives, indications were explained they consented. Procedure: The patient was brought to the operating room and placed on the table in the supine position area after adequate anesthesia was obtained the patient was prepped and draped in the standard surgical fashion. First the resectoscope was inserted into the bladder using the visual obturator. The previously seen posterior bladder lesion with erythematous mucosa was identified around 2cm. The landmarks were identified including both ureteral orifices. We then resected the tumor in a systematic fashion starting laterally and working medially. Once all tumor had been resected the tumor pieces were removed using the Lindaik evacuator. Electrocautery was used to obtain hemostasis. A three-way Whaley catheter was then inserted and irrigated. The patient tolerated the procedure well there were no complications. She will fu with me in 2 weeks for pathology review. Electronic Signatures: John Bajwa) (Signed 16-Dec-2022 11:30) Authored: Post-Operative Note, Chart Review, Note Completion Last Updated: 16-Dec-2022 11:30 by John Bajwa) [facility] 12-13-2022 Miscellaneous Notes PROCEDURE DETAILS Preoperative Diagnosis: Bladder lesion Postoperative Diagnosis: Bladder lesion Surgeon: Dr. Colmenares Resident/Fellow/Other Internship: none Procedure: TURBT Estimated Blood Loss: 0 Findings: See Op note Specimens(s) Collected: yes, bladder lesion Operative Report: Preoperative diagnosis: Bladder mass Postop diagnosis: Same Procedure: Cystoscopy TURBT Physician: John Bajwa Anesthesia: Gen. Estimated blood loss: Minimal Indications and consent: The patient presents for treatment of a bladder mass seen on recent office cystoscopy. After the risks, benefits, alternatives, indications were explained they consented. Procedure: The patient was brought to the operating room and placed on the table in the supine position area after adequate anesthesia was obtained the patient was prepped and draped in the standard surgical fashion. First the resectoscope was inserted into the bladder using the visual obturator. The previously seen posterior bladder lesion with erythematous mucosa was identified around 2cm. The landmarks were identified including both ureteral orifices. We then resected the tumor in a systematic fashion starting laterally and working medially. Once all tumor had been resected the tumor pieces were removed using the Jacqueline evacuator. Electrocautery was used to obtain hemostasis. A three-way Whaley catheter was then inserted and irrigated. The patient tolerated the procedure well there were no complications. She will fu with me in 2 weeks for pathology review. Electronic Signatures: John Bajwa) (Signed 16-Dec-2022 11:30) Authored: Post-Operative Note, Chart Review, Note Completion Last Updated: 16-Dec-2022 11:30 by John Bajwa) documented in this encounter [facility] Work Phone: 12-13-2022 Note Formatting of this n ote is different from the original. PROCEDURE DETAILS Preoperative Diagnosis: Bladder lesion Postoperative Diagnosis: Bladder lesion Surgeon: Dr. Colmenares Resident/Fellow/Other Internship: none Procedure: TURBT Estimated Blood Loss: 0 Findings: See Op note Specimens(s) Collected: yes, bladder lesion Operative Report: Preoperative diagnosis: Bladder mass Postop diagnosis: Same Procedure: Cystoscopy TURBT Physician: John Bajwa Anesthesia: Gen. Estimated blood loss: Minimal Indications and consent: The patient presents for treatment of a bladder mass seen on recent office cystoscopy. After the risks, benefits, alternatives, indications were explained they consented. Procedure: The patient was brought to the operating room and placed on the table in the supine position area after adequate anesthesia was obtained the patient was prepped and draped in the standard surgical fashion. First the resectoscope was inserted into the bladder using the visual obturator. The previously seen posterior bladder lesion with erythematous mucosa was identified around 2cm. The landmarks were identified including both ureteral orifices. We then resected the tumor in a systematic fashion starting laterally and working medially. Once all tumor had been resected the tumor pieces were removed using the Ellik evacuator. Electrocautery was used to obtain hemostasis. A three-way Whaley catheter was then inserted and irrigated. The patient tolerated the procedure well there were no complications. She will fu with me in 2 weeks for pathology review. Electronic Signatures: John Bajwa) (Signed 16-Dec-2022 11:30) Authored: Post-Operative Note, Chart Review, Note Completion Last Updated: 16-Dec-2022 11:30 by John Bajwa) [facility] Work Phone: 12-12-2022 Note History & Physical R eviewed: /Lactating: Are You no Are You Currently Breastfeedingno I have reviewed the History and Physical dated: 09-Dec-2022 History and Physical reviewed and relevant findings noted. Patient examined to review pertinent physical findings.: No significant changes Home Medications Reviewed: no changes noted Allergies Reviewed: no changes noted ERAS (Enhanced Recovery After Surgery): ERAS Patient: no Consent: COVID-19 Consent: COVID-19 Risk ConsentSurgeon has reviewed ceron risks related to the risk of rosalva COVID-19 and if they contract COVID-19 what the risks are. Electronic Signatures: John Bajwa) (Signed 12-Dec-2022 09:55) Authored: History & Physical Reviewed, ERAS, Consent, Note Completion Last Updated: 12-Dec-2022 09:55 by John Bajwa) [facility] 12-12-2022 History and physical note History & Physical Reviewed: /Lactating: Are You no Are You Currently no I have reviewed the History and Physical dated: 09-Dec-2022 History and Physical reviewed and relevant findings noted. Patient examined to review pertinent physical findings.: No significant changes Home Medications Reviewed: no changes noted Allergies Reviewed: no changes noted ERAS (Enhanced Recovery After Surgery): ERAS Patient: no Consent: COVID-19 Consent: COVID-19 Risk Consent Surgeon has reviewed ceron risks related to the risk of rosalva COVID-19 and if they contract COVID-19 what the risks are. Electronic Signatures: John Bajwa) (Signed 12-Dec-2022 09:55) Authored: History & Physical Reviewed, ERAS, Consent, Note Completion Last Updated: 12-Dec-2022 09:55 by John Bajwa) [facility] Work Phone: 12-12-2022 History and physical note History & Physical Reviewed: /Lactating: Are You no Are You Currently no I have reviewed the History and Physical dated: 09-Dec-2022 History and Physical reviewed and relevant findings noted. Patient examined to review pertinent physical findings.: No significant changes Home Medications Reviewed: no changes noted Allergies Reviewed: no changes noted ERAS (Enhanced Recovery After Surgery): ERAS Patient: no Consent: COVID-19 Consent: COVID-19 Risk Consent Surgeon has reviewed ceron risks related to the risk of rosalva COVID-19 and if they contract COVID-19 what the risks are. Electronic Signatures: John Bajwa) (Signed 12-Dec-2022 09:55) Authored: History & Physical Reviewed, ERAS, Consent, Note Completion Last Updated: 12-Dec-2022 09:55 by John Bajwa) documented in this encounter [facility] Work Phone: 11-27-2022 Telephone encounter Note S: Patient spoke with [facility] nurse regarding left sciatica pain and Left ear pain. B: Onset of symptoms/concern 1 year A: Patient states she has Left sciatica pain, in the Left thigh and buttocks, worsens with driving, 10/10 current pain. Patient unable to take ibuprofen, hasn't taken anything. Patient has been seen by the chiropractor for several years. Patient states it hurts to ambulate. Patient denies chest pain, has lower mid-back pain, has history of asthma, denies swelling, no rash afebrile, no numbness, no weakness. No . Patient has been using ice packs without relief. Patient c/o Left ear pain, loud voices increase pain, onset several days. R: Patient understands care advice, declined SDA. Patient scheduled for 11/28/2022 at 8:20 am with Zain Horne PA-C. Best contact # . No further needs at this time. Reason for Disposition SEVERE pain (e.g., excruciating, unable to do any normal activities) Protocols used: Leg [id number]-CY [facility] 11-27-2022 Miscellaneous Notes S: Patient spoke with [facility] nurse regarding left sciatica pain and Left ear pain. B: Onset of symptoms/concern 1 year A: Patient states she has Left sciatica pain, in the Left thigh and buttocks, worsens with driving, 10/10 current pain. Patient unable to take ibuprofen, hasn't taken anything. Patient has been seen by the chiropractor for several years. Patient states it hurts to ambulate. Patient denies chest pain, has lower mid-back pain, has history of asthma, denies swelling, no rash afebrile, no numbness, no weakness. No . Patient has been using ice packs without relief. Patient c/o Left ear pain, loud voices increase pain, onset several days. R: Patient understands care advice, declined SDA. Patient scheduled for 11/28/2022 at 8:20 am with Zain Horne PA-C. Best contact # . No further needs at this time. Reason for Disposition SEVERE pain (e.g., excruciating, unable to do any normal activities) Protocols used: Leg Ezsm-OMHRI-EK documented in this encounter [facility] 08-09-2022 History of Present illness Narrative 47 year old female presents today for cystoscopy for hematuria workup. CT on 08/09/22 revealed 1. No evidence of nephroureterolithiasis, hydroureteronephrosis, ordefinite filling defects identified within ureters.2. No abnormal bladder wall thickening or soft tissue lesionsidentified. Incidental note of a slightly prominent urachal remnantwithout abnormal cystic changes or calcifications.3. Prominent lobulated appearance of the uterus may be related touterine fibroids among other etiologies and suboptimally evaluated onthis examination. There is also a 2.5 cm low-density left ovarianlesion may represent a cyst but also suboptimally evaluated by CT.Consider dedicated ultrasound for further assessment. [facility] Work Phone: 08-09-2022 History of Present illness Narrative 47 year old female presents today for 4 month fu cystoscopy for hematuria workup. CT on 08/09/22. LUTs are chronic and mild. Denies frequency and urgency. dysuria, no hematuria. Nocturia x1. Caffeine does worsen LUTs. No medications for LUTs. [facility] Work Phone: 01-30-2022 Hospital Discharge instructions Arabella Sharp RN - 01/30/2022 TAKE the following medications the morning of your surgery Symbicort, Lexapro, Prilosec. You may take your prescription pain medication. You may take Tylenol for pain. NO Motrin, ibuprofen or Advil for 24 hours prior to surgery or longer if instructed by your surgeon. NO Aleve or Naprosyn for 3 days prior to surgery or longer if instructed by your surgeon. Shower with an antibacterial soap such as Dial or Safeguard or shower kit provided to you before coming to the hospital. No makeup, lotion, powder, deodorant or body spays. No hair products. Remove all jewelry and leave it at home. Wear loose comfortable clothing to go home in. You may brush your teeth morning of surgery. Do not wear contacts day of surgery. No marijuana (THC), smoking or alcohol for 24 hours prior to surgery. Please arrange for a responsible adult to drive you home after your surgery and that there is a responsible adult with you for 24 hours post discharge. If you have specific questions, please call your surgeon. You will receive a call the day before your surgery to verify your arrival time and date. You will be asked to arrive at least two hours prior to your scheduled surgery time. Please bring your [facility] folder and medication list with you day of surgery. We encourage you to write down any questions you may have for the surgeon, anesthesiologist, or other members of the surgical team and bring it with you the day of surgery. Please bring photo ID and insurance information. You may use the free hadoop application developer parking at the main entrance on [address] [place] [address], or the free parking in the [facility] parking deck The following attachments cannot be sent through Care Everywhere.Hysteroscopy - Dilation and Curettage: Post-op (Thai)documented in this encounter [facility] Work Phone: Chief complaint Narrative - Reported Migraine patient being assessed today for initial evaluation of migrainesNeurologic Evaluation.An interactive audio and video telecommunication system which permits real time communications between the patient (at the originating site) and provider (at the distant site) was utilized to provide this telehealth service.Verbal consent was requested and obtained from CAREY TEJEDA on this date, 12/10/2022 10:30 AM , for a telehealth visit. [facility] Work Phone: documented in this encounter [facility] Work Phone: Evaluation note* Diagnosis Infestation by bed bug- Primary Other specified infestations Bedbug bite, initial encounter documented in this encounter [facility] Work Phone: Evaluation note* Diagnosis Abnormal uterine bleeding (AUB) documented in this encounter [facility] Work Phone: Evaluation note* Diagnosis Problem with Whaley catheter, initial encounter ([facility])- Primary documented in this encounter [facility]* Diagnosis Acute left-sided back pain with sciatica documented in this encounter [facility]* Diagnosis Acute left-sided back pain with sciatica- Primary documented in this encounter [facility] note* Diagnosis Acute left-sided back pain with sciatica- Primary documented in this encounter [facility] note* Diagnosis Acute left-sided back pain with sciatica- Primary documented in this encounter [facility] note* Diagnosis Other chronic cystitis without hematuria Other specified disorders of bladder documented in this encounter [facility] Work Phone: Evaluation note* Diagnosis Injury of left knee, initial encounter- [facility]* Medical History Date Comments Asthma Endometriosis Vitamin D deficiency Headache Migraines Uterine enlargement DUB (dysfunctional uterine bleeding) Fibroid uterus 02/2012 unspecified Ovarian cyst Left Fibrocystic breast Neoplasm of uncertain behavior of skin Iron deficiency anemia 03/2011 transfusi on of 2 units High cholesterol 2016 STD (female) 1999 [facility] [employer] Work Phone: History general Narrative - Reported* Medical History Date Comments Asthma Endometriosis Vitamin D deficiency Headache Migraines Uterine enlargement DUB (dysfunctional uterine bleeding) Fibroid uterus 02/2012 unspecified Ovarian cyst Left Fibrocystic breast Neoplasm of uncertain behavior of skin Iron deficiency anemia 03/2011 transfusi on of 2 units High cholesterol 2016 STD (female) 1999 [employer] Work Phone: [place] general Narrative - Reported* Medical History Date Comments Asthma Endometriosis Vitamin D deficiency Headache Migraines Uterine enlargement DUB (dysfunctional uterine bleeding) Fibroid uterus 02/2012 unspecified Ovarian cyst Left Fibrocystic breast Neoplasm of uncertain behavior of skin Iron deficiency anemia 03/2011 transfusi on of 2 units High cholesterol 2016 STD (female) 1999 [employer] Work Phone: History general Narrative - Reported* Medical History Date Comments Asthma Endometriosis Vitamin D deficiency Headache Migraines Uterine enlargement DUB (dysfunctional uterine bleeding) Fibroid uterus 02/2012 unspecified Ovarian cyst Left Fibrocystic breast Neoplasm of uncertain behavior of skin Iron deficiency anemia 03/2011 transfusi on of 2 units High cholesterol 2016 STD (female) 1999 [employer] Work Phone: [place] general Narrative - Reported* Medical History Date Comments Asthma Endometriosis Vitamin D deficiency Headache Migraines Uterine enlargement DUB (dysfunctional uterine bleeding) Fibroid uterus 02/2012 unspecified Ovarian cyst Left Fibrocystic breast Neoplasm of uncertain behavior of skin Iron deficiency anemia 03/2011 transfusi on of 2 units High cholesterol 2016 STD (female) 1999 [employer] Work Phone: History of Present illness Narrative* This note was created using voice recognition chief clinical officer software. Despite proofreading, unintentional typographical errors may be present. Please contact the GI office with any questions or concerns. * This is a 47 yo F who comes to the office today with reports of abdominal pain. She came by referral of her son whom I've seen recently in the office. She has a PMH of migraines (on Amitriptyline), IBS asthma, acid reflux on long-term PPI, endometriosis, and anemia. * She states that she had generalized abdominal pain but worse on the L side. When she lies on the L side it makes it worse. The pain was always in the morning. This has been going on for the last few weeks. Moving around makes it somewhat better. On Friday, she went to the ED @ [facility]. She states she has a hiatal hernia that was notated on a CT scan. She states her liver/kidney looks good. The urinalysis and bloodwork were done. She states she had proteinuria and maybe a sign of a UTI. She is concerned about a low BUN since September. * She feels like she has some constipation. [place] scale 2 and 4. She tried Metamucil gummies and she found it helpful at first. Then she couldn't take them for a few days, then noticed a difference. * She has been taking Omeprazole 20 mg daily by her lung/allergy doc states that she needs to be on this because the acid reflux, triggers her asthma. She has been on Omeprazole for 5 years. The acid reflux wakes her up at nighttime. * She has had anemia for years but also has endometriosis. * She would like to see a urologist for the low BUN. * She has recently changed her diet and isn't eating out as much. * She states she has had solid dysphagia for the last few months. She has intermittent regurgitation.She has BRBPR streaks on the toilet paper. * CT of A/P w/o IV contrast (06/22/22) showed a sliding type hiatal hernia (see official report for details) * EGD-Denies * Colonoscopy-June 11, 2011 * BM-Usually every day. Slight constipation. * FHX-Mgrandmother stomach CA * SHX-Rare ETOH, denies tobacco or illicits * Ab Sx-2 C-sections (1 vertical), 1 complications-ruptured * NSAIDs-IBP since Friday. * Current Medications: reviewed * A 10 point review of system is negative except for what is mentioned in the HPI * Vital Signs: Reviewed * Physical Exam: * General: no apparent distress, pleasant and cooperative * Skin: Warm and dry, no jaundice * HEENT: No scleral icterus, no conjunctival pallor, normocephalic, atraumatic, mucous membranes moist * Neck: atraumatic, trachea midline, no JVD * Chest: Clear to auscultation bilaterally. No wheezes, rales, or rhonchi * CV: Regular rate and rhythm. Positive S1/S2 * Abdomen: mild distension-air filled, +BS, soft, non-tender to palpation, no rebound tenderness, no guarding, no rigidity, no discernible ascites * Extremities: no lower extremity edema, Chronic pigmentary changes, no cyanosis * Neurological: A&Ox3 , no asterixis * Psychiatric: cooperative * Investigations: * Labs, radiological imaging and cardiac work up were reviewed * Upper Gastrointestinal: abdominal pain, heartburn, regurgitation, but no jaundiced, no nausea, no pain while swallowing, no vomiting. * Lower Gastrointestinal: abdominal swelling, bloating, constipation, but no diarrhea, no fecal incontinence, no bowel urgency, no steatorrhea. * Gastrointestinal Bleeding: bright red blood per rectum, but no hematemesis, no maroon stools, no melena/black stool, not vomiting 'coffee grounds' material. * Symptom History: * Modifying Factors: * Associated Symptoms: [id number] Work Phone: History of Present illness Narrative* Consult for gross hematuria. Pt states her PCP found blood in UA. she states she has seen blood butthought it was her menstrual cycle. No pain. No hx of kidney stones. Pt did have a U/S done which was normal from a urological stand point. Chronic LUTS sx are mild and stable. some frequency No urgency. . No dysuria. . Nocturia 1x. caffeine does worsen sx. Pt is not taking any medications for LUTS. hx of endometriosis * We had a very long and extensive discussion regarding gross hematuria. I explained to the patient the pathophysiology, differential diagnosis, risk factor, associated conditions, and management. We discussed the need to do a hematuria work-up to rule out any underlying malignancies in the form of masses, tumor, polyps that might be causing the hematuria. We discussed at length the risk, benefit, potential complication, adverse events of cystoscopy and CT urogram. Patient verbalized understanding and would like to proceed. [id number] Work Phone: History of Present illness Narrative* This note was created using voice recognition chief clinical officer software. Despite proofreading, unintentional typographical errors may be present. Please contact the GI office with any questions or concerns. * This is a 47 yo F who comes to the office today with reports of abdominal pain. She came by referral of her son whom I've seen recently in the office. She has a PMH of migraines (on Amitriptyline), IBS asthma, acid reflux on long-term PPI, endometriosis, and anemia. * She states that she had generalized abdominal pain but worse on the L side. When she lies on the L side it makes it worse. The pain was always in the morning. This has been going on for the last few weeks. Moving around makes it somewhat better. On Friday, she went to the ED @ [facility]. She states she has a hiatal hernia that was notated on a CT scan. She states her liver/kidney looks good. The urinalysis and bloodwork were done. She states she had proteinuria and maybe a sign of a UTI. She is concerned about a low BUN since September. * She feels like she has some constipation. [place] scale 2 and 4. She tried Metamucil gummies and she found it helpful at first. Then she couldn't take them for a few days, then noticed a difference. * She has been taking Omeprazole 20 mg daily by her lung/allergy doc states that she needs to be on this because the acid reflux, triggers her asthma. She has been on Omeprazole for 5 years. The acid reflux wakes her up at nighttime. * She has had anemia for years but also has endometriosis. * She would like to see a urologist for the low BUN. * She has recently changed her diet and isn't eating out as much. * She states she has had solid dysphagia for the last few months. She has intermittent regurgitation.She has BRBPR streaks on the toilet paper. * CT of A/P w/o IV contrast (06/22/22) showed a sliding type hiatal hernia (see official report for details) * EGD-Denies * Colonoscopy-June 11, 2011 * BM-Usually every day. Slight constipation. * FHX-Mgrandmother stomach CA * SHX-Rare ETOH, denies tobacco or illicits * Ab Sx-2 C-sections (1 vertical), 1 complications-ruptured * NSAIDs-IBP since Friday. * Current Medications: reviewed * A 10 point review of system is negative except for what is mentioned in the HPI * Vital Signs: Reviewed * Physical Exam: * General: no apparent distress, pleasant and cooperative * Skin: Warm and dry, no jaundice * HEENT: No scleral icterus, no conjunctival pallor, normocephalic, atraumatic, mucous membranes moist * Neck: atraumatic, trachea midline, no JVD * Chest: Clear to auscultation bilaterally. No wheezes, rales, or rhonchi * CV: Regular rate and rhythm. Positive S1/S2 * Abdomen: mild distension-air filled, +BS, soft, non-tender to palpation, no rebound tenderness, no guarding, no rigidity, no discernible ascites * Extremities: no lower extremity edema, Chronic pigmentary changes, no cyanosis * Neurological: A&Ox3 , no asterixis * Psychiatric: cooperative * Investigations: * Labs, radiological imaging and cardiac work up were reviewed * Upper Gastrointestinal: abdominal pain, heartburn, regurgitation, but no jaundiced, no nausea, no pain while swallowing, no vomiting. * Lower Gastrointestinal: abdominal swelling, bloating, constipation, but no diarrhea, no fecal incontinence, no bowel urgency, no steatorrhea. * Gastrointestinal Bleeding: bright red blood per rectum, but no hematemesis, no maroon stools, no melena/black stool, not vomiting 'coffee grounds' material. * Symptom History: * Modifying Factors: * Associated Symptoms: [facility] Work Phone: History of Present illness Narrative* . She reports that she has had migraines since she was 8 years old that usually her pressure sensation across her eyes. Since 2009 she has had headaches that originate in her neck and come up the back of her head pressure. She states that this occurs daily and last the majority of the day. There are times where it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
== END 2023-09-15 13:20 | disposition left against medical advice (07) ==
LOC: ED 16:13
DX: Z04.3 Encounter for examination and observation following other accident (principal); W19.XXXA Unspecified fall, initial encounter